=== PATIENT | male | born 1980 | race Caucasian/White ===

== ENCOUNTER 2023-10-03 02:04 | Emergency (ER) | payer SELFPAY ==
[~2023-10-03] VITALS: Ht 182.9 cm; Wt 113.4 kg
[2023-10-03 02:25] VITALS: BP 144/90; PULSE 92; RESP 17; TEMP 97.8; O2SAT 98
== END 2023-10-03 05:38 | disposition home or self-care (01) ==
LOC: MED 02:04
DX: I83.891 Varicose veins of right lower extremity with other complications (principal)
CPT/HCPCS: 99282